=== PATIENT | female | born 1990 | race Caucasian/White ===

== ENCOUNTER 2018-07-25 07:57 | Day surgery (SDC) | payer BC ==
[~2018-07-25] VITALS: Ht 157.5 cm; Wt 70.5 kg
[~2018-07-25 07:57] MED LIST: ACET500C5 PO; CHOL100062 PO; ONDA4TAB8 PO
[2018-07-25 09:19] VITALS: Ht 157.5 cm; Wt 70.5 kg
[2018-07-25] MEDS ORDERED: NO ACTIVE MEDS (09:22)
[2018-07-25 09:43] VITALS: BP 188/98; PULSE 96; RESP 17
[2018-07-25 10:30] VITALS: BP 112/78; PULSE 80; RESP 18
[2018-07-25] MEDS ORDERED: FENTAnyl 50 MCG/ML VIAL ONE (10:31)
[2018-07-25] MEDS ORDERED: MIDAZOLAM 1 MG/ML 2 ML INJ ONE ×3 (10:31)
[2018-07-25 10:45] VITALS: BP 105/71; PULSE 74; RESP 18
== END 2018-07-25 12:07 | disposition home or self-care (01) ==
LOC: GIL 07:57
PROVIDERS: ATTEND Internal Medicine Gastroenterology
DX: K92.1 Melena (principal); D12.5 Benign neoplasm of sigmoid colon; K64.4 Residual hemorrhoidal skin tags
CPT/HCPCS: 45380; 84703; 88305; J2250; J3010; Z7610